=== PATIENT | female | born 1940 | race Caucasian/White ===

== ENCOUNTER 2023-08-25 12:56 | Outpatient (OUT) | payer MEDICARE, OTHER, SELFPAY ==
--- NOTE | 2023-08-25 13:01 | MM_ITS ---
Patient: QUAN HUITRON Exam Date: 08/25/2023 : 1940 Gender:F Ordering : DR JEANIE WORKMAN Admission #: [id number] Family : Order #: [id number] CLICK HERE TO VIEW EXAM RADIOLOGY REPORT PROCEDURE: MM TOMOSYNTHESIS SCREENING BI COMPARISON: MG MAMM SCREEN 3D PRIYANKA CAD, 08/23/2022. MG MAMM SCREEN 3D PRIYANKA CAD, 08/20/2021. INDICATIONS: Screening Calculator Name NCI Breast Cancer Risk Assessment Tool 5 Year Breast Cancer Risk 1.00% Lifetime Breast Cancer Risk 1.40% Personal Breast Cancer No Personal Ovarian Cancer No Treatments None Family Cancers None LOCATION: [facility] BREAST COMPOSITION: Heterogeneously dense,which may obscure small masses. FINDINGS: DIAGNOSTIC CATEGORY 1--NEGATIVE. NO CHANGE FROM COMPARISON ASSESSMENT. Scattered benign-appearing nodules are present. Scattered benign-appearing calcifications are present. RIGHT BREAST: No significant suspicious finding. LEFT BREAST: No significant suspicious finding. RECOMMENDATIONS: ROUTINE MAMMOGRAM AND CLINICAL EVALUATION IN 12 MONTHS. PLEASE NOTE: A NORMAL MAMMOGRAM DOES NOT EXCLUDE THE POSSIBILITY OF BREAST CANCER. A CLINICALLY SUSPICIOUS PALPABLE LUMP SHOULD BE BIOPSIED. Dictated by: Mj Wisdom MD on 08/26/2023 at 08:41 Approved by: Mj Wisdom MD on 08/26/2023 at 08:43
== END 2023-08-25 12:57 | disposition home or self-care (01) ==
LOC: MAMMO 12:56
PROVIDERS: PCP Family Medicine; Visit Provider Family Medicine
DX: Z12.31 Encounter for screening mammogram for malignant neoplasm of breast (principal)
CPT/HCPCS: 77063; 77067

== ENCOUNTER 2024-09-12 08:23 | Outpatient (OUT) | payer MEDICARE, OTHER, SELFPAY ==
--- NOTE | 2024-09-12 08:25 | MM_ITS ---
Patient Name: QUAN HUITRON MR#: [id number] : 1940 Exam Date: 09/12/2024 Ordering Doctor: DR JEANIE WORKMAN RADIOLOGY REPORT PROCEDURE: MM TOMOSYNTHESIS SCREENING BI COMPARISON: MM TOMOSYNTHESIS SCREENING BI, 08/25/2023. MG MAMM SCREEN 3D PRIYANKA CAD, 08/23/2022. MG MAMM SCREEN 3D PRIYANKA CAD, 08/20/2021. MG MAMM PRIYANKA SCRN W CAD DIG, 08/30/2013. INDICATIONS: Screening Calculator Name NCI Breast Cancer Risk Assessment Tool 5 Year Breast Cancer Risk 1.00% Lifetime Breast Cancer Risk 1.20% Personal Breast Cancer No Personal Ovarian Cancer No Treatments None Family Cancers None LOCATION: [facility] BREAST COMPOSITION: The breasts are heterogeneously dense,which may obscure small masses. FINDINGS: DIAGNOSTIC CATEGORY 2--BENIGN FINDING: RIGHT BREAST: No significant suspicious finding. Scattered benign-appearing calcifications are present. No significant change has occurred. LEFT BREAST: No significant suspicious finding. Scattered benign-appearing calcifications are present. No significant change has occurred. RECOMMENDATIONS: ROUTINE MAMMOGRAM AND CLINICAL EVALUATION IN 12 MONTHS. PLEASE NOTE: A NORMAL MAMMOGRAM DOES NOT EXCLUDE THE POSSIBILITY OF BREAST CANCER. A CLINICALLY SUSPICIOUS PALPABLE LUMP SHOULD BE BIOPSIED. Dictated by: Arnaldo Gold M.D. on 09/16/2024 at 18:19 Approved by: Arnaldo Gold M.D. on 09/16/2024 at 18:22
== END 2024-09-12 08:24 | disposition home or self-care (01) ==
LOC: MAMMO 08:23
PROVIDERS: PCP Family Medicine; Visit Provider Family Medicine
DX: Z12.31 Encounter for screening mammogram for malignant neoplasm of breast (principal)
CPT/HCPCS: 77063; 77067

== ENCOUNTER 2025-10-23 10:31 | Outpatient (OUT) | payer MEDICARE, OTHER, SELFPAY ==
--- NOTE | 2025-10-23 10:33 | MM_ITS ---
Patient Name: QUAN HUITRON MR#: [id number] : 1940 Exam Date: 10/23/2025 Ordering Doctor: DR JEANIE WORKMAN RADIOLOGY REPORT PROCEDURE: MM TOMOSYNTHESIS SCREENING BI COMPARISON: MM TOMOSYNTHESIS SCREENING BI, 09/12/2024. MM TOMOSYNTHESIS SCREENING BI, 08/25/2023. MG MAMM SCREEN 3D PRIYANKA CAD, 08/23/2022. MG MAMM PRIYANKA SCRN W CAD DIG, 08/30/2013. INDICATIONS: Screening Calculator Name NCI Breast Cancer Risk Assessment Tool 5 Year Breast Cancer Risk 0.90% Lifetime Breast Cancer Risk 1.00% Personal Breast Cancer No Personal Ovarian Cancer No Treatments None Family Cancers None LOCATION: [facility] BREAST COMPOSITION: The breasts are heterogeneously dense, which may obscure small masses. FINDINGS: RIGHT BREAST: No significant suspicious finding. Benign-appearing calcifications are present. LEFT BREAST: No significant suspicious finding. Benign-appearing calcifications are present. There is a similar focal asymmetry. DIAGNOSTIC CATEGORY 2--BENIGN FINDING. NO CHANGE FROM COMPARISON. RECOMMENDATIONS: ROUTINE MAMMOGRAM AND CLINICAL EVALUATION IN 12 MONTHS. Dictated by: Zenon Yusuf MD on 10/23/2025 at 15:37 Approved by: Zenon Yusuf MD on 10/23/2025 at 15:49
--- OUTSIDE RECORDS SUMMARY | 2025-10-23 10:34 | XMS_ITS | Clinical Summary ---
Author Organization [facility] Address [address] [place] [address] Care Team Providers Care Instructional Resource Teacher Name Role Phone Sy Montano MD Primary Care Provider [phone] Allergies Active AllergyReactionsCriticalityNoted DateCommentsSulfa Kqgzuwdymtg13/27/2025 Medications MedicationSigDispense QuantityRefillsLast FilledStart DateEnd DateStatus potassium chloride CR (Klor-Con M20) 20 MEQ ER tablet TAKE 1 TABLET(20 MEQ) BY MOUTH EVERY VKNAQRM16/13/2025Active atorvastatin (Lipitor) 40 MG tablet 1 (one) time each day at the same timeActive empagliflozin (Jardiance) 25 MG Take 25 mg by mouth in the morning.5Active hydroCHLOROthiazide (Microzide) 12.5 MG capsule Take 12.5 mg by mouth in the morning.5Active levothyroxine (Synthroid, Levoxyl) 100 MCG tablet Take 100 mcg by mouth5Active cyanocobalamin (Vitamin B-12) 100 MCG tablet Take 100 mcg by mouth DailyActive Active Problems No known active problems Immunizations ImmunizationAdministration DatesNext DuePneumococcal Conjugate PCV Pneumococcal Polysaccharide [id number]/01/2012Zoster, live06/20/2009 Social History Tobacco UseTypesPacks/DayYears UsedDateSmoking Tobacco: NeverSmokeless Tobacco: NeverAlcohol UseStandard Drinks/WeekCommentsYes0 (1 standard drink = 0.6 oz pure alcohol)occasionalCommentsUnknownSex and Gender InformationValueDate RecordedSex Assigned at BirthNot on fileLegal TjnQsqfzw68/15/2023 8:23 PM EDT Gender IdentityNot on fileSexual OrientationNot on file Last Filed Vital Signs Vital SignReadingTime TakenCommentsBlood Pressure--Pulse--Temperature-- Respiratory Rate--Oxygen Saturation--Inhaled Oxygen Concentration--Cmhkvm80.2 kg (135 lb)06/11/2025 11:13 AM UQICykxie536.1 cm (5' 5 )06/11/2025 11:13 AM EDTBody Mass Index22.47006/11/2025 11:13 AM EDT Plan of Treatment Health MaintenanceDue DateLast DoneCommentsCOVID-19 Vaccine ( season) 501/05/2022, 01/09/2021, 12/19/2020Influenza Vaccine (#1)2025 Pneumococcal Vaccine: 65+ UldxjHtofeekak39/21/2013, 09/13/2007 Insurance [place] [id number] Care Teams Team MemberRelationshipSpecialtyStart DateEnd Date Sy Montano MD [address] [facility], [facility] [place] [address] [facility]
--- OUTSIDE RECORDS SUMMARY | 2025-10-23 10:34 | XMS_ITS | Clinical Summary ---
Author Organization [employer] Address [id number] [address] [place] [address] Care Team Providers Care Box Maker Wood Name Role Phone Sy Montano Primary Care Provider Allergies Active AllergyReactionsCriticalityNoted RxtxLesjslnnRsvfncxzegXdteLhe45/13/2022 Sulfa (Sulfonamide Antibiotics)01/04/2017 Unsure of reaction Medications MedicationSigDispense QuantityRefillsLast FilledStart DateEnd DateStatus calcium citrate-vitamin D3 (CITRACAL+D) 315-200 mg-units per tablet Take 1 tablet by mouth in the morning.Active gymnema extract 500 mg capsule Take by mouth.Active hydroCHLOROthiazide (MICROZIDE) 12.5 mg capsule TAKE 1 CAPSULE(12.5 MG) BY MOUTH EVERY MORNING 90 capsule 5Active potassium chloride (KLOR-CON M 20) 20 MEQ CR tablet TAKE 1 TABLET(20 MEQ) BY MOUTH EVERY MORNING 180 tablet 5Active JARDIANCE 25 mg tablet tablet Indications:Type 2 diabetes mellitus with right eye affected by mild nonproliferative retinopathy without macular edema, without long-term current use of insulin ([facility])TAKE 1 TABLET(25 MG) BY MOUTH IN THE MORNING 30 tablet 505Active losartan (COZAAR) 100 mg tablet TAKE 1 TABLET(100 MG) BY MOUTH EVERY MORNING 90 tablet 5Active levothyroxine (SYNTHROID, LEVOTHROID) 88 MCG tablet Take 1 tablet (88 mcg total) by mouth in the morning. 90 tablet 5Active mecobalamin, vitamin B12, 1,000 mcg tablet,disintegrating Place 1 tablet under the tongue in the morning. DISSOLVE 1 TABLET UNDER THE TONGUE EVERY MORNING. 60 tablet 5Active atorvastatin (LIPITOR) 40 mg tablet TAKE 1 TABLET BY MOUTH EVERY DAY 90 tablet 1105Active Active Problems Patient Care Coordination No te Formatting of this note migh t be different from the original. DME: [facility] HTN and DM Care Plan: [12/31/2024] RN Added: Nurse to instruct on: the importance of preventative screenings and what they mean to your health -discussed 12/31/2024 SA RN the importance of your care plan -12/31/24 SA RN the purpose of your medications and the importance of adherence Medrec done, refills requested 12/31/24 SA RN proper use of your blood pressure meter and glucometer your Diabetes and Hypertension, its diagnosis and treatment the importance of recognizing cuts/bruises that are slow to heal, feeling very thirsty, tingling, pain, or numbness in the hands/feet (type 2), and vision changes that seem to fluctuate as a S&S of your Diabetes -discussed 02/19/25 SA RN the importance of recognizing blurry vision, dizziness, headache, and shortness of breath as a S&S of your Hypertension -12/31/24 , RN Nurse to assist in: scheduling your appointments, as needed setting a goal to check blood glucose, check blood pressure, continue with current treatment plans,do regular physical activity, get enough sleep, maintain medication compliance, and measure HbA1c -discussed BG, A1C, and increasing physical activity 02/19/25 , RN Patient to verbalize understanding of: the importance of your care plan keeping a written list of your medications preventative screenings and what they mean to your health your medications and the importance of adherence -07/31/25 refill requested 07/31/25 SA RN monitoring HbA1c -02/19/25 , RN monitoring blood pressure-12/31/24 , RN monitoring blood glucose -02/19/25 SA RN your Diabetes, its diagnosis, process and treatment -Discussed recent visit with nutrition, reviewed s/s of HYPO/HYPERglycemia, daily feet inspection and referral to podiatry. 03/22/25 AH, WATCH DIAL STONER your Hypertension, its diagnosis, process and treatment the importance of recognizing blurry vision, cuts/bruises that are slow to heal, feeling very thirsty, tingling, pain, or numbness in the hands/feet (type 2), and vision changes that seem to fluctuate as a S&S of your Diabetes -extensive education done on diet and exercise for DM control and nutrition referral requested 02/19/25 SA RN the importance of recognizing blurry vision, dizziness, headache, and shortness of breath as a S&S of your Hypertension Patient to commit to: check blood glucose check blood pressure continue with current treatment plans do regular physical activity get enough sleep maintain medication compliance measure HbA1c -07/31/25 SA RN Over the next 12 months, Patient will go to appointments with: Primary Care Provider 05/16/25 SA RN Over the next 12 months, Patient will complete the following tests, immunizations, and preventativescreenings: Annual Wellness Visit 04/23/2025 , RN Depression Screening 05/16/25 , RN Fall Risk Assessment 05/16/25 SA< RN Shingles vaccine 05/20/2025 Tdap Vaccine 05/20/2025 Declines flu and covid vaccine 2024 Education: -discussed s/sx of DVT 02/19/25 SA RN -discussed hypothyroid sx 07/31/25 SA RN ProblemNoted DateDiagnosed DateChronic superficial gastritis with bleeding 4PVC (premature ventricular contraction)12/21/2023arrett's esophagus with ypcbazerp99/04/2023nemia due to vitamin B12 bszxkyzvbw52/04/2023Erosive gastritis with axbrhsuxpy30/19/2023denomatous polyp of ascending colon 03/09/2023Toxic effect of carbon monoxide, gflincwrfnmyb65/31/2023Microcytic vhisud2202/18/2023egeneration of lumbar intervertebral disc09/02/2022Essential qsuosijdcgdm15/13/3209Mphlgszgdmplps45/13/3490Cunqvwkdstskoq11/13/2022 Obstructive sleep apnea gosywbtf03/13/6815Iwdcckwuotconp93/13/2022rug-induced oelpqmngsgx35/27/2016Type 2 diabetes gknvekuf03/20/2016 Resolved Problems ProblemNoted DateDiagnosed DateResolved DateMild nonproliferative diabetic retinopathy of right eye associated with type 2 diabetes fhzyhzzc42/13/2022 03/24/2023 Encounters DateTypeDepartmentCare JjrxQmtctgvwpwz91/14/2025Patient Outreach [facility] [address] [place] [address] Sy Montano, DO Type 2 diabetes mellitus with right eye affected by mild nonproliferative retinopathy without macular edema, without long-term current use of insulin ([facility]) (Primary Dx); Essential zwlndjqwhsla25/13/2025Patient Outreach [facility] [address] [place] [address] Sy Montano, DO Type 2 diabetes mellitus with right eye affected by mild nonproliferative retinopathy without macular edema, without long-term current use of insulin ([facility]) (Primary Dx); Essential ktsynesilyyb79/20/2025Patient Outreach [facility] [address] [place] [address] Sy Montano, DO Type 2 diabetes mellitus with right eye affected by mild nonproliferative retinopathy without macular edema, without long-term current use of insulin ([facility]) (Primary Dx); Essential snvvufatkjzw76/08/2025Refill [facility] [address] [place] [address] Sy Montano, DO 07/31/2025Refill [facility] [address] [place] [address] Sy Montano, DO Type 2 diabetes mellitus with right eye affected by mild nonproliferative retinopathy without macular edema, without long-term current use of insulin ([facility]) (Primary Dx); Essential xvpfpvajvwua98/10/2025Patient Outreach [facility] [address] [place] [address] Sy Montano, DO Type 2 diabetes mellitus with right eye affected by mild nonproliferative retinopathy without macular edema, without long-term current use of insulin ([facility]) (Primary Dx); Essential hypertensionfrom Last 3 Months Immunizations ImmunizationAdministration DatesNext DueCOVID-19, mRNA, LNP-S, PF, 30mcg/0.3mL Dose01/09/2021,1Pneumococcal Conjugate 13-Syhkto4609/10/2013Pneumococcal Opxybjrhzbfoff28/24/2253Hdjy75/01/2012Zoster Live06/20/2009 Family History Medical HistoryRelationNameCommentsDepressionBrother 1died of suicideHeart attackBrother 2HypertensionBrother 2No Known ProblemsBrother 3MVA victim at age 30HypothyroidismBrother 5PneumoniaBrother 6died at 9monthsNo Known Problems DaughteradoptedHeart diseaseFatherStrokeFatherAnxiety disorderMotherGoiterMother RelationNameStatusCommentsBrother 1DeceasedBrother 2Brother 3DeceasedBrother 4 DeceasedBrother 5AliveBrother 6DeceasedDaughterAliveFatherDeceasedMotherDeceased Social History Tobacco UseTypesPacks/DayYears UsedDateSmoking Tobacco: NeverSmokeless Tobacco: Never Tobacco Cessation:Counseling Given: Not Answered Alcohol UseStandard Drinks/WeekCommentsYes0 (1 standard drink = 0.6 oz pure alcohol)few times a yearPROM[facility] UtilitiesAnswerDate RecordedIn the past 12 months has the electric, gas, oil, or water [employer] threatened to shut off services in your home?No04/17/2024Social Connection and Isolation PanelAnswerDate RecordedIn a typical week, how many times do you talk on the phone with family, friends, or neighbors?More than three times a week03/29/2023How often do you get together with friends or relatives?More than three times a week03/29/2023How often do you attend sabianism or taoism services?More than 4 times per year03/29/2023o you belong to any clubs or organizations such as sabianism groups, unions, fraternal or athletic groups, or school groups?Yes03/29/2023How often do you attend meetings of the clubs or organizations you belong to?More than 4 times per year03/29/2023re you , , , , never , or living with a partner?Obpktwep96/09/2023UDIT-CAnswerDate RecordedQ1: How often do you have a drink containing alcohol?Monthly or less03/29/2023Q2: How many drinks containing alcohol do you have on a typical day when you are drinking?Patient does not drink03/29/2023Q3: How often do you have six or more drinks on one occasion?Never03/29/2023Overall Financial Resource Strain (CARDIA) AnswerDate RecordedHow hard is it for you to pay for the very basics like food, housing, medical care, and heating?Not hard at all04/03/2024HQ-2AnswerDate RecordedTotal Sudak559[facility] [place] of Occupational Health - Occupational Stress QuestionnaireAnswerDate RecordedDo you feel stress - tense, restless, nervous, or anxious, or unable to sleep at night because yourmind is troubled all the time - these days?Not at all03/29/2023Exercise Vital SignAnswer Date RecordedOn average, how many days per week do you engage in moderate to strenuous exercise (like a brisk walk)?3 days03/29/2023On average, how many minutes do you engage in exercise at this level?60 min03/29/2023RAPARE - TransportationAnswerDate RecordedIn the past 12 months, has lack of transportation kept you from medical appointments or from getting medications?No 04/03/2024In the past 12 months, has lack of transportation kept you from meetings, work, or from getting things needed for daily living?No04/03/2024 Housing InstabilityAnswerDate RecordedAre you worried or concerned that in the next two months you may not have stable housing that you own, rent or stay in as a part of a household?No04/03/2024hildcareAnswerDate RecordedDo problems getting attendant children's institution make it difficult for you to work or study?No03/29/2023 EmploymentAnswerDate RecordedDo you need help finding a local career center and/or a training program?No03/29/2023Hunger ScreeningAnswerDate RecordedWithin the past 12 months we worried whether our food would run out before we got money to buy more.Never True05/16/2025Within the past 12 months the food we bought just didn't last and we didn't have money to get more.Never True05/16/2025 Purpose - LifeAnswerDate RecordedI have a purpose and direction in my life. Strongly Agree3CommentsNoSex and Gender InformationValueDate RecordedSex Assigned at BirthNot on fileLegal YhbNqaflq36/06/2015 11:56 AM EDT Gender IdentityNot on fileSexual OrientationNot on file Last Filed Vital Signs Vital SignReadingTime TakenCommentsBlood Pqznsvyw739/60005/16/2025 3:41 PM EDT Othla151305/16/2025 3:41 PM ZBLXypntkunvnq47.7 ??C (98.1 ??F)05/16/2025 3:41 PM EDTRespiratory Wicw421105/16/2025 3:41 PM EDTOxygen Ljqlwvaqck02%05/16/2025 3:41 PM EDTInhaled Oxygen Concentration--Cceyga98.1 kg (136 lb 12.8 oz)05/16/2025 3:41 PM OZHPanawu646.1 cm (5' 5 )05/16/2025 3:41 PM EDTBody Mass Index22.76 05/16/2025 3:41 PM EDT Plan of Treatment DateTypeDepartmentCare Team (Latest Contact Info)Kvdawlgjluz84/07/2026 9:00 AM ESTOffice Visit [facility] [address] [place] [phone] Sy Montano, DO [address], [place] [address] 12/11/2025 10:00 AM ESTOffice Visit [facility] [address] [place] [phone] Cassy Delarosa, PLANNING MANAGEMENT IT SPECIALIST-EXECUTIVE MANAGER [address], [address] [place] [address] 04/29/2026 9:20 AM EDTOffice Visit [facility] [address] [place] [place] [address] Health MaintenanceDue DateLast DoneCommentsZoster (Shingles) Vaccine (2 of 3) RSV ( or age 60+ yrs) (1 - 1-dose 75+ series) 2016DTaP,Tdap and Td Vaccines (2 - Td or Tdap)COVID-19 Vaccine (4 - season)/05/2022, 01/09/2021, 12/19/2020 Influenza Feqzaqa1107/22/2025Medicare Annual Wellness Visit/01/2025, 04/17/2024, 03/29/2023epression Vivrhjetl90/Fall Risk Fmxksahyu72/Tobacco Sagxjytbc35/ Medical Devices Not on file Insurance Care Teams Team MemberRelationshipSpecialtyStart DateEnd Date Sy Montaon DO [address] [facility] [place] [address] PCP - GeneralFamily Gzbwmxvl12/14/17 Patt Joyce CCM Nurse - [facility]12/31/24
--- OUTSIDE RECORDS SUMMARY | 2025-10-23 10:34 | XMS_ITS | Clinical Summary ---
Author Organization [facility] Address [address], [address] [place] [address] Care Team Providers Care Broker Agricultural Produce Name Role Phone Sy Montano DO Primary Care Provider + [phone] Allergies Active AllergyReactionsCriticalityNoted DateComments Lisinopril-Wfrucczjgaheoyyvfeb12/31/2013 Medications MedicationSigDispense QuantityRefillsLast FilledStart DateEnd DateStatus atorvastatin (LIPITOR) 40 MG tablet 09/17/2013ctive VOLTAREN 1 % GEL 09/05/2013ctive ZETIA 10 MG tablet 09/17/2013ctive losartan (COZAAR) 50 MG tablet 07/31/2013ctive levothyroxine (SYNTHROID) 88 MCG tablet Take 88 mcg by mouth Daily.Active ibuprofen (ADVIL;MOTRIN) 800 MG tablet Take 800 mg by mouth every 6 hours as needed.Active Family History Medical HistoryRelationNameCommentsHeart DiseaseFatherThyroid DiseaseMother RelationNameStatusCommentsFatherDeceasedMotherDeceased Social History Tobacco UseTypesPacks/DayYears UsedDateSmoking Tobacco: NeverAlcohol UseStandard Drinks/WeekCommentsYes0 (1 standard drink = 0.6 oz pure alcohol)Comments NoSex and Gender InformationValueDate RecordedSex Assigned at BirthNot on file Legal CvwAjlqpa16/10/2013 6:48 PM ESTGender IdentityNot on fileSexual OrientationNot on file Last Filed Vital Signs Vital SignReadingTime TakenCommentsBlood Bfayobfc687/7409/20/2013 1:06 PM EDT Pulse--Temperature--Respiratory Rate--Oxygen Saturation--Inhaled Oxygen Concentration--Zyljlt09.6 kg (171 lb)09/20/2013 1:06 PM DSUBegvcr882.6 cm (5' 6 )09/20/2013 1:06 PM EDTBody Mass Index27. 1:06 PM EDT Plan of Treatment Not on file Care Teams Team MemberRelationshipSpecialtyStart DateEnd Date Sy Montano DO [address] [place] [address] [facility]06/06/13
== END 2025-10-23 10:32 | disposition home or self-care (01) ==
LOC: MAMMO 10:31
PROVIDERS: PCP Family Medicine; Visit Provider Family Medicine
DX: Z12.31 Encounter for screening mammogram for malignant neoplasm of breast (principal)
CPT/HCPCS: 77063; 77067